=== PATIENT | female | born 1980 | race Caucasian/White ===

== ENCOUNTER 2017-03-24 18:18 | Emergency (ER) | payer BC ==
[~2017-03-24] VITALS: Ht 167.6 cm; Wt 98.3 kg
[~2017-03-24 18:18] MED LIST: BACTRIM,SEPT1 TABLET PO; CHEWABLE MULTI1 EACH PO; DIAMOX SEQUELS500 MG PO; DIAMOX250 MG PO; ENDOCET 5-3251 EACH PO; MOTRIN800 MG PO; NOHOMEMEDS; ~No Medications
[2017-03-24 19:40] LABS: HEMATOCRIT 37.6 % (36.0-46.0); MCH 27.1 PG (29.0-34.0); MCHC 32.7 G/DL (30.0-36.0); MCV 82.8 FL (83-99); MEAN PLAT.VOLUME 10.1 uM^3 (9.5-12.4); PLATELET COUNT 199 K/uL (156-360); RBC DIS.WIDTH-SD 42.4 % (39-53); RED BLOOD COUNT 4.54 M/uL (3.80-5.20); WHITE BLOOD COUNT 9.2 K/uL (4.1-10.2)
[2017-03-24 19:49] LABS: CHLORIDE 106 mEq/L (99-109); POTASSIUM 3.4 mEq/L (3.7-5.4); SODIUM 139 mEq/L (136-147)
[2017-03-24 19:51] LABS: GLUCOSE 113 mg/dL (70-99)
[2017-03-24 19:52] LABS: ANION GAP 9 MEQ/L (2-14)
[2017-03-24 19:55] LABS: GFR ESTIMATE (CALCULATED) > 59 mL/min/
[2017-03-24 19:56] LABS: UREA NITROGEN (BUN) 12 mg/dL (9-23)
[2017-03-24 20:03] LABS: QUANTITATIVE HCG < 4.0 MIU/ML
[2017-03-24 21:29] VITALS: BP 120/62
== END 2017-03-24 21:30 | disposition home or self-care (01) ==
LOC: EME 18:18
PROVIDERS: Emergency Medicine
DX: G93.2 Benign intracranial hypertension (principal); Z98.2 Presence of cerebrospinal fluid drainage device; I10 Essential (primary) hypertension; Z86.73 Personal history of transient ischemic attack (TIA), and cerebral infarction without residual deficits
CPT/HCPCS: 70450; 80048; 82945; 84157; 84702; 85027; 87070; 87205; 89051; 99281; 99284

== ENCOUNTER → 2017-03-25 | Outpatient (CLI) | payer BC ==
[2017-03-25 17:04] LABS: APPEARANCE CLEAR/COLORLESS; RED CELL AREA COUNTED 18; RED CELL COUNT 1 /MM^3 (0-1); RED CELL DILUTION 1; WBC AREA COUNTED 18; WBC DILUTION 1; WHITE CELL COUNT 3 /MM^3 (0-5); WHITE CELL RAW COUNT 5
[2017-03-25 17:13] LABS: APPEARANCE CLEAR/COLORLESS; MONONUCLEAR WBC'S ND % (50-90); RED CELL AREA COUNTED 18; RED CELL COUNT 0 /MM^3 (0-1); RED CELL DILUTION 1; WBC AREA COUNTED 18; WBC DILUTION 1; WHITE CELL COUNT 2 /MM^3 (0-5); WHITE CELL RAW COUNT 4
[2017-03-25 17:14] LABS: CSF EOSINOPHILS ND % (0-25); POLYNUCLEAR WBC'S ND % (0-3)
[2017-03-25 17:14] LABS: CSF EOSINOPHILS ND % (0-25); MONONUCLEAR WBC'S ND % (50-90); POLYNUCLEAR WBC'S ND % (0-3)
== END | disposition home or self-care (01) ==
LOC: RAD 14:18
PROVIDERS: Nurse Practitioner Acute Care
PROC: 009U3ZZ Drainage of Spinal Canal, Percutaneous Approach (ICD-10-PCS; principal; 2017-03-25)
DX: G93.2 Benign intracranial hypertension (principal); H53.9 Unspecified visual disturbance
CPT/HCPCS: 62270; 77003; 82945; 84157; 87070; 87205; 89051